=== PATIENT | male | born 1965 | race Caucasian/White ===

== ENCOUNTER 2022-01-01 19:47 | Emergency (ER) | payer SELFPAY ==
[~2022-01-01] VITALS: Ht 177.8 cm; Wt 81.6 kg
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
--- NOTE | 2022-01-01 21:00 | NUR ---
X-RAY TECH AT BEDSIDE
--- NOTE | 2022-01-01 21:58 | NUR ---
DR. TRIPP ORDERED TO HAVE CT W/ CONTRAST TAKEN WITHOUT LAB. RADIOLOGY NOTIFIED
[2022-01-01] MEDS ORDERED: HYDROCODONE/APAP 5/325MG TABLET ONE (21:59)
[2022-01-01] MEDS ORDERED: HYDROCODONE/APAP 5/325MG TABLET PO ONE (22:00)
[2022-01-01] MEDS ORDERED: IOHEXOL-300 100 ML VIAL IV ONE (22:01)
[2022-01-01] MEDS ORDERED: CT SWABBABLE VALVE TRANS SET 1 EA INFUS.SET MC ONE (22:02)
[2022-01-01] MEDS ORDERED: IV NS 0.9% 250 ML IV ONE (22:02)
--- NOTE | 2022-01-01 22:04 | NUR ---
PT REFUSED THE CT.
--- NOTE | 2022-01-01 23:10 | NUR ---
PATIENT TAKEN TO CT VIA [facility]RE[facility]
[2022-01-01] MEDS ORDERED: IBUP-1955 PO (23:20)
--- NOTE | 2022-01-02 01:18 | NUR ---
CALLED [facility] TO F/U WITH CT ABD REPORT. NOTIFIED RADIOLOGY TO SEND [facility] REQUISITION PAPER TO [facility]
--- NOTE | 2022-01-02 03:16 | NUR ---
Patient does not wish to proceed with medical care recommended by Dr. Soledad SCHULTZ. Patient given information related to possible complications, up to and including , which could occur as a result of leaving the hospital at this time. Patient verbalizes understanding of risks involved due to leaving against medical advice. Patient has signed AMA form. IV removed. Catheter intact and site benign. Pressure and 4x4 applied to site. No bleeding noted. PT ambulatory with a steady gait
[2022-01-02 04:08] VITALS: BP 200/136
== END 2022-01-02 03:20 | disposition left against medical advice (07) ==
LOC: ER 19:49
DX: S09.90XA Unspecified injury of head, initial encounter (principal); M25.562 Pain in left knee; Z60.2 Problems related to living alone; V01 Pedestrian injured in collision with pedal cycle; Y93.01 Activity, walking, marching and hiking; Y92.89 Other specified places as the place of occurrence of the external cause; Y99.8 Other external cause status
CPT/HCPCS: 99285; 74160; 71045; 72170; 73564; 72125; 70450; J7050; Q9967; 71260-TC